=== PATIENT | female | born 1975 | race Caucasian/White ===

== ENCOUNTER 2024-02-08 00:57 | Day surgery (SDC) | payer OTHER, SELFPAY ==
[2024-02-07 19:56] VITALS: BP 140/60
[2024-02-07 20:10] LABS: % Basophils 0.5 % (0-2); % Eosinophils 2.2 % (0-6); % Immature Granulocytes 0.4 % (0-0.5); % Lymphocytes 28.2 % (20.5-51.1); % Monocytes 6.9 % (1.7-9.3); % Neutrophils 61.8 % (42.2-75.2); Absolute Eosinophils 0.2 10^3/uL (0-0.7); Absolute Lymphocytes 2.3 10^3/uL (1.2-3.4); Absolute Monocytes 0.6 10^3/uL (0.1-0.6); Hematocrit 38.4 % (37.0-47.0); Hemoglobin 13.6 g/dL (12.0-16.0); Mean Corp Hgb Conc. 35.4 g/dL (33.0-37.0); Mean Corpuscular Hgb 30.7 pg (27.0-31.0); Mean Corpuscular Volume 86.7 fL (81.0-99.0); Nucleated Red Blood Cells % 0 %; Platelet Count 239 10^3/uL (130-400); Red Blood Cell Count 4.43 10^6/uL (4.20-5.40); Red Cell Dist. Width 12.2 % (11.5-14.5); White Blood Cell Count 8.1 10^3/uL (4.8-10.8)
[2024-02-07 20:21] LABS: HCG, Serum Qualitative Screen Negative
[2024-02-07 20:27] LABS: ALT (SGPT) 38 U/L (0-35); AST (SGOT) 88 U/L (14-36); Albumin 4.6 g/dl (3.5-5.0); Alkaline Phosphatase 73 U/L (38-126); Blood Urea Nitrogen 16 mg/dl (7-17); Calcium 9.9 mg/dl (8.4-10.2); Carbon Dioxide 26 mmol/L (22-30); Chloride 102 mmol/L (98-107); Glucose 115 mg/dl (70-99); Potassium 3.7 mmol/L (3.5-5.1); Sodium 141 mmol/L (135-145); Total Bilirubin 0.9 mg/dl (0.2-1.3); eGFR > 60.00
[2024-02-07 20:28] LABS: Lipase 161 U/L (23-300)
[2024-02-07 20:35] VITALS: BMI 21.5
[2024-02-07 20:40] VITALS: BP 142/74
[2024-02-07 21:00] VITALS: BP 136/69
--- NOTE | 2024-02-07 21:58 | ED.GENMED ---
History of Present Illness
<ANA MARÍA Draper - Last Filed: 02/08/24 05:47>
General
Chief Complaint: Abdominal Pain
Time Seen by Provider: 02/07/24 21:58
History of Present Illness
History of Present Illness:
Patient is a 48 year old female presenting with upper abdominal pain x 4 hours. She claims the pain is epigastric it started around 630pm and was rated a 9/10 on a pain scale. It was described as sharp and radiates to her back. She tried taking Tums
but it did not alleviate symptoms. The pain is constant but fluctuates in severity, it is currently an 8/10. She also admits to associated nausea but denies vomiting. Her last time eating and drinking was at 600pm. She has not had a bowel movement
since before the symptom onset. She denies diarrhea changes in bowel movements dysuria fever chest pain palpitations shortness of breath.
Patient has no allergies and does not take any medication besides the Tums which did not work. She denies any history of constipation or IBS. She denies any recent surgeries. Patient admits to having 1 drink every couple of weeks but denies any
smoking history.
<Rufus Jessica DO - Last Filed: 02/08/24 00:47>
General
Source: patient
Exam Limitations: none
Past History
<ANA MARÍA Draper - Last Filed: 02/08/24 05:47>
Past History
ED Past Medical History: None
Social History
Tobacco: Non-smoker
Personal:
Living: with family
Review of Systems
<ANA MARÍA Draper - Last Filed: 02/08/24 05:47>
Review of Systems
Constitutional: Reports no symptoms
Respiratory: Reports no symptoms
Cardiac: Reports no symptoms
ABD/GI: Reports abdominal pain and nausea
: Reports no symptoms
Phy Exam
<[facility] Filed: 02/08/24 05:47>
General Physical Exam
General Presentation: mild distress
General age: appears stated age
General Habitus: normal
General Mental: alert
General Hydration: appears well hydrated
Cardiovascular Exam
Cardiovascular Exam: regular rate/rhythm, no edema, no gallop, no JVD and no murmur
Pulmonary Exam
Pulmonary Exam: lungs clear, no respiratory distress, no rales, chest non tender, no crackles, no rhonchi, no stridor, no wheezing and no cough
Gastrointestinal Exam
Gastrointestinal Exam: normal bowel sounds, soft, no organomegaly, no pulsatile mass, non distended and tender
Palpation: left upper quadrant: Moderate tenderness, right upper quadrant: Moderate tenderness and right lower quadrant: Mild tenderness
Skin Exam
Skin Exam: normal color, warm/dry, no rash and no petechia
Course
<Crispin De La Garza [facility] Filed: 02/08/24 05:47>
Orders/Labs/Results
Orders:
Orders
02/07/24 20:00
Test Result ONCE
02/07/24 20:04
Complete Blood Count/With Diff Urgent
Comprehensive Metabolic Panel Urgent
HCG, Serum Qualitative Screen Urgent
Comment: Notify provider if positive test present
Lipase Urgent
02/07/24 22:01
Urinalysis Reflex To Culture Urgent
Date Specimen was Collected: 02/07/24
Time Specimen was Collected: 21:58
02/07/24 22:54
CT Abd/pelvis W Iv Cont Urgent
Comment:
Reason For Exam: rlq pain
0.9% Sodium Chloride 1000 ml [Nss] 1,000 ml IV BOLUS
02/07/24 22:55
Mag Hydrox/Al Hydrox/Simeth [Maalox] 30 ml Phenobarb/Hyoscy/Atropine/Scop [] 10 ml PO NOW
Ondansetron Injectable [Zofran] 4 mg IV NOW STA
02/07/24 23:00
Phenobarb/Hyoscy/Atropine/Scop [] 10 ml .ROUTE .STK-MED ONE
02/07/24 23:01
Mag Hydrox/Al Hydrox/Simeth [Maalox] 30 ml .ROUTE .STK-MED ONE
02/07/24 23:08
EKG- Treatment ONCE
02/08/24 00:00
US Abdomen Complete/Upper Urgent
Reason For Exam: RUQ abdominal pain
02/08/24 00:44
Piperacillin/Tazo 4.5 Gram [Zosyn] 4.5 gram in 100 ml IV NOW
02/08/24 00:46
Admit/Transfer Patient As Directed
Co-Sign Provider:
Level of Care: Observation services
Assign to:: Medical/Surgical
Physician / Group: dr saavedra
Diagnosis: acute cholecystitis
PRN Pain Medication Management As Directed
May give lesser potent ordered pain med per pt: Yes
preference::
Protocol:: Medication orders for pain may be administered in a
manner that supports deferring to patient preference
when the pt is:
- Requesting an ordered lesser potent pain medication.
Least to most potent pain medications are defined
as: acetaminophen < NSAID < tramadol < opioids
(morphine, oxycodone, hydromorphone).
- Requesting a lesser dose of the same medication IF
ORDERED.
- Requesting a less intrusive route of administration
if both routes are prescribed by the provider (PO <
IV).
02/08/24 00:47
Code Status As Directed
Resuscitation Status: Full Code
02/08/24 00:58
Acetaminophen [Tylenol] 650 mg PO Q4HPRN PRN
HYDROmorphone [Dilaudid] 0.25 mg IV Q2HPRN PRN
Ketorolac [Toradol] 10 mg IV Q6HPRN PRN
Ondansetron Injectable [Zofran] 4 mg IV Q6HPRN PRN
02/08/24 00:58
Activity As Directed
Activity Level: Out of Bed-Early Mobility
Anti-embolism (CRYS) Hose As Directed
Type: Thigh high
Intake/ Output As Directed
Frequency: Per unit guidelines
Sequential Compression Device [Pneumatic Compression Sleeves] As Directed
Type: Knee high
Vital Signs As Directed
Frequency: Per unit guidelines
DX Deep Vein Thrombosis Video Routine
02/08/24 01:00
Normosol (Mult Electrolytes) [Normosol-R/Plasmalyte-A] 1,000 ml IV 125 mls/hr
02/08/24 Breakfast
NPO
Allow oral meds: Yes
Allow clear liquids: No
NPO with Ice Chips: No
Complete Blood Count/With Diff IN AM
Comprehensive Metabolic Panel IN AM
02/08/24 08:00
Piperacillin/Tazo 3.375 Gram [Zosyn] 3.375 gram in 50 ml IV Q6H
Abnormal Lab Results
02/07/24
20:04
Glucose 115 H mg/dl
(70-99)
AST 88 H U/L
(14-36)
ALT 38 H U/L
(0-35)
02/07/24 20:04
02/07/24 20:04
Vital Signs
Initial and Last Documented VS:
Initial Vital Signs
Temp Pulse Resp BP Pulse Ox
97.9 F 58 20 140/60 99
02/07/24 19:56 02/07/24 19:56 02/07/24 19:56 02/07/24 19:56 02/07/24 19:56
Last Documented Vital Signs
Temp Pulse Resp BP Pulse Ox
98.2 F 62 16 157/85 99
02/08/24 01:25 02/08/24 01:25 02/08/24 01:25 02/08/24 01:25 02/08/24 01:25
<Rufus Jessica, - Last Filed: 02/08/24 00:47>
Orders/Labs/Results
Orders:
Orders
02/07/24 20:00
Test Result ONCE
02/07/24 20:04
Complete Blood Count/With Diff Urgent
Comprehensive Metabolic Panel Urgent
HCG, Serum Qualitative Screen Urgent
Comment: Notify provider if positive test present
Lipase Urgent
02/07/24 22:01
Urinalysis Reflex To Culture Urgent
Date Specimen was Collected: 02/07/24
Time Specimen was Collected: 21:58
02/07/24 22:54
CT Abd/pelvis W Iv Cont Urgent
Comment:
Reason For Exam: rlq pain
0.9% Sodium Chloride 1000 ml [Nss] 1,000 ml IV BOLUS
02/07/24 22:55
Mag Hydrox/Al Hydrox/Simeth [Maalox] 30 ml Phenobarb/Hyoscy/Atropine/Scop [] 10 ml PO NOW
Ondansetron Injectable [Zofran] 4 mg IV NOW STA
02/07/24 23:00
Phenobarb/Hyoscy/Atropine/Scop [] 10 ml .ROUTE .STK-MED ONE
02/07/24 23:01
Mag Hydrox/Al Hydrox/Simeth [Maalox] 30 ml .ROUTE .STK-MED ONE
02/07/24 23:08
EKG- Treatment ONCE
02/08/24 00:00
US Abdomen Complete/Upper Urgent
Reason For Exam: RUQ abdominal pain
02/08/24 00:44
Piperacillin/Tazo 4.5 Gram [Zosyn] 4.5 gram in 100 ml IV NOW
02/08/24 00:46
Admit/Transfer Patient As Directed
Co-Sign Provider:
Level of Care: Observation services
Assign to:: Medical/Surgical
Physician / Group: dr saavedra
Diagnosis: acute cholecystitis
PRN Pain Medication Management As Directed
May give lesser potent ordered pain med per pt: Yes
preference::
Protocol:: Medication orders for pain may be administered in a
manner that supports deferring to patient preference
when the pt is:
- Requesting an ordered lesser potent pain medication.
Least to most potent pain medications are defined
as: acetaminophen < NSAID < tramadol < opioids
(morphine, oxycodone, hydromorphone).
- Requesting a lesser dose of the same medication IF
ORDERED.
- Requesting a less intrusive route of administration
if both routes are prescribed by the provider (PO <
IV).
02/08/24 00:47
Code Status As Directed
Resuscitation Status: Full Code
02/08/24 00:58
Acetaminophen [Tylenol] 650 mg PO Q4HPRN PRN
HYDROmorphone [Dilaudid] 0.25 mg IV Q2HPRN PRN
Ketorolac [Toradol] 10 mg IV Q6HPRN PRN
Ondansetron Injectable [Zofran] 4 mg IV Q6HPRN PRN
02/08/24 00:58
Activity As Directed
Activity Level: Out of Bed-Early Mobility
Anti-embolism (CRYS) Hose As Directed
Type: Thigh high
Intake/ Output As Directed
Frequency: Per unit guidelines
Sequential Compression Device [Pneumatic Compression Sleeves] As Directed
Type: Knee high
Vital Signs As Directed
Frequency: Per unit guidelines
DX Deep Vein Thrombosis Video Routine
02/08/24 01:00
Normosol (Mult Electrolytes) [Normosol-R/Plasmalyte-A] 1,000 ml IV 125 mls/hr
02/08/24 Breakfast
NPO
Allow oral meds: Yes
Allow clear liquids: No
NPO with Ice Chips: No
Complete Blood Count/With Diff IN AM
Comprehensive Metabolic Panel IN AM
02/08/24 08:00
Piperacillin/Tazo 3.375 Gram [Zosyn] 3.375 gram in 50 ml IV Q6H
Abnormal Lab Results
02/07/24
20:04
Glucose 115 H mg/dl
(70-99)
AST 88 H U/L
(14-36)
ALT 38 H U/L
(0-35)
02/07/24 20:04
02/07/24 20:04
Vital Signs
Initial and Last Documented VS:
Initial Vital Signs
Temp Pulse Resp BP Pulse Ox
97.9 F 58 20 140/60 99
02/07/24 19:56 02/07/24 19:56 02/07/24 19:56 02/07/24 19:56 02/07/24 19:56
Last Documented Vital Signs
Temp Pulse Resp BP Pulse Ox
98.2 F 62 16 157/85 99
02/08/24 01:25 02/08/24 01:25 02/08/24 01:25 02/08/24 01:25 02/08/24 01:25
<ANA MARÍA Draper - Last Filed: 02/08/24 05:47>
MDM/Problems Addressed
Differential Diagnosis Includes:
acute pancreatitis, cholecystitis, constipation, appendicitis
MDM/Problems Addressed:
order blood work and urine sample, give meds for pain initially. 1135pm update checked on patient and she claims the cocktail has helped her pain
<ANA MARÍA Draper - Last Filed: 02/08/24 05:47>
*Critical Care Note
Total Time (30-74mins, 75-104mins- exclusive of procedures): Not Applicable
<Rufus Jessica DO - Last Filed: 02/08/24 00:47>
Update Note
Update Note:
I spoke with general surgery, Dr. Saavedra via [employer] text. I provided him with a copy of the vision radiology report. He agreed to have the patient admitted to his service. He requested Zosyn. Repeat labs in the a.m. House nurse practitioner
aware.
ED Attending Note
<ANA MARÍA Draper - Last Filed: 02/08/24 05:47>
-
Portions of this chart may have been created with voice recognition software.� Occasional wrong word or��sound alike� substitutions may have occurred due to the inherent limitations of voice recognition software.
<Rufus Jessica DO - Last Filed: 02/08/24 00:47>
ED Attending Note
Patient seen and examined by attending physician: Yes
I performed the substantive portion of visit, reviewed & personally made and approve the management plan that is documented in note by myself or PORTIA.: Yes
ED Attending Note:
Pleasant 48-year-old female presents with right-sided abdominal pain that began at 6:45 PM. She states that the pain came on approximate 45 minutes after eating dinner. Patient states that initially the pain was in the right upper quadrant. It
has now settled in the midline. She reports nausea without vomiting. She states that the pain is colicky in nature and comes and goes. She reports that riding her to the emergency department caused her extreme discomfort especially in the right
lower quadrant. Denies previous abdominal surgeries. Reports no recent alcohol intake. Patient was seen in conjunction with the PA student. I have reviewed and agree with the history and treatment plan presented. On my independent physical
exam, patient is awake, alert, and oriented x3, minimal acute distress at time of my exam. She states that at its worst the pain is 9 out of 10. Currently she states that she is 3 out of 10. Negative Orozco sign. Negative McBurney's point
tenderness though she does have right lower quadrant tenderness to palpation. She also reports epigastric tenderness to palpation.
Vital signs are stable. Patient not hypoxic
Nursing note reviewed. I agree with nursing documentation up to this point in time.
Home Meds and allergies reviewed.
NUMBER AND COMPLEXITY OF PROBLEMS ADDRESSED AT THE ENCOUNTER
� Chronic conditions affecting care: None
� Acute Exacerbation and/or Progression of Chronic Illness: None this is an acute problem
� Differential Diagnosis includes: Biliary colic, cholecystitis, appendicitis, ulcer
AMOUNT AND/OR COMPLEXITY OF DATA TO BE REVIEWED AND ANALYZED
I performed an independent evaluation of the following and my interpretation is:
EKG:
CT: IMPRESSION:
Gallstones are present in the gallbladder. Gallbladder wall is markedly thickened and edematous. Findings are suspicious for acute cholecystitis in the appropriate clinical setting.
No bile duct dilatation.
Mild bilateral urothelial thickening of the ureters, consider correlation with urinalysis for possibility of UTI. No signs of pyelonephritis. No obstructing ureteral calculi.
Moderate colonic stool. No bowel obstruction. An appendix is not visualized.
Small cyst/follicles in the right ovary/adnexa. Heterogeneity of the uterus, suggestive of underlying fibroids.
X-rays:
Ultrasound:
Laboratory Studies: 8.1 white blood cell count. AST is 88, ALT is 38
Other:
Review of other/old records:
Clinical information was obtained by an independent historian:
Prescriptions/Medications Considered but not given:
Further testing considered but not performed:
RISK OF COMPLICATIONS AND/OR MORBIDITY OR MORTALITY OF PATIENT MANAGEMENT
Social determinants of health affecting care: Good Social Support
Discussion with other providers:
Escalation of care including admission/observation vs risk of discharge considered:
CRITICAL CARE NOTE:
Total Time (exclusive of procedures):
Update:
Discharge Plan
Departure
Patient Disposition: Admit
Date of Disposition: 02/08/24
Time of Disposition: 00:45
Admit to: Med/Surg
Presentation/result/management discussed w/ accepting MD/DO: Dr. Saavedra
Condition: Good
Discharge Problem:
Acute cholecystitis
Interventions
Interventions:
*Risk Screen - Suicide Last Done: 02/07/24 19:56
*General Assessment Last Done: 02/07/24 19:56
*Neglect/Abuse Screening Last Done: 02/07/24 20:35
ED- Fall Risk Assessment Last Done: 02/08/24 03:02
*ED COVID-19 Vaccine History Last Done: 02/07/24 20:35
*Nursing Disposition Last Done: 02/08/24 03:02
SV-Gvszqh-Dbyrhnipir Assessment Last Done: 02/07/24 20:35
Discharge Date and Time
Discharge Date/Time: 02/08/24 01:30
[2024-02-07 22:00] VITALS: BP 90/74
[2024-02-07 22:17] LABS: Urine Albumin Negative (Neg - Trace); Urine Bilirubin Negative (Negative); Urine Character Clear (Clear); Urine Color Yellow; Urine Glucose Negative (Negative); Urine Ketone Negative (Negative); Urine Leukocyte Negative (Negative); Urine Nitrite Negative (Negative); Urine Occult Blood Negative (Negative); Urine Specific Gravity 1.015 (<1.030); Urine Urobilinogen Negative (Neg - 1+)
[2024-02-07 23:00] VITALS: BP 127/77
[2024-02-07] MEDS: ZOFRAN 4 MG IV (23:02)
[2024-02-07] MEDS: NSS 1000 IV (23:03)
[2024-02-07] MEDS: MAALOX 40 PO (23:03)
[2024-02-08] VITALS (10 sets, daily range): BP systolic 110–157; BP diastolic 57–85; BMI 20.3
[2024-02-08] MEDS: NORMOSOL-R/PLASMALYTE-A 1000 IV ×3 (01:50→15:56)
--- NOTE | 2024-02-08 01:50 | PTCARENOTE ---
Pt. arriving to 2S via stretcher and able to walk to room bed with steady gait. Pt. A&Ox3, in NAD, even and unlabored breathing on RA, denies nausea at present, BP elevated but otherwise VSS. Pt. oriented to room and unit policies,
questions/concerns addressed at time of assessment, bed locked and in lowest position, side rails in place, and call light within reach.
--- NOTE | 2024-02-08 03:13 | DOWNTIME ---
There was a [employer] Client [employer] Downtime on 02/08/2024 from 0100 to 02/08/2024 at 0300. Downtime documentation of patient's care, including medication administrations, has been reconciled in the electronic record per guidelines. Refer to the
patient's paper chart under the miscellaneous tab to see printed paper medication records and downtime forms.
--- NOTE | 2024-02-08 03:19 | HPS.HSE ---
Addendum entered and electronically signed by Khoi Aguero MD 02/08/24 09:19:
I saw and examined the patient.
The [employer] Project Manager's note was reviewed and I agree with the note.
Comment: Pain free this am. Likely passed stones given AST/ALT elevation and multiple small stones on imaging. Offered OR today vs DC and elective CCY, she prefers to get ti done today. All risks,m benefits, co,pications and alternatives were
discussed in detail including but not limited to pain, bleeding, infection, injury to intra-abdominal structures including but not limited to bile ducts, intestine, stomach, liver, conversion to open, need for additional procedures and the pt
verbalized understanding and agreed to proceed. OCTOR for lap jeannie with cholang
Original Note:
Family Physician
-
Family Physician: Kemi Berger
Chief Complaint
-
upper abd pain
History of Present Illness
Patient is a 48 year old female presenting with upper abdominal pain/epigastric starting around 1800. Pain was rated a 9/10 on a pain scale. It was described as sharp and radiates to her back. She tried taking Tums but it did not alleviate symptoms.
The pain is constant but fluctuates in severity, it is currently an 1/10 at time of my eval. She also admits to associated nausea but denies vomiting. Her last time eating and drinking was at 600pm(turkey burger and broccoli). She has not had a
bowel movement since before the symptom onset. She denies diarrhea changes in bowel movements dysuria fever chest pain palpitations shortness of breath.
Patient has no allergies and does not take any medication besides the Tums which did not work. She denies any history of constipation or IBS. She denies any recent surgeries. Patient admits to having 1 drink every couple of weeks but denies any
smoking history.
Ct abd: gallstones present in gallbladder. Gallbladder wall markedly thickened and edematous. Findings suspicious for acute cholecystitis.
Ultrasound abd: multiple gallstones are present in the GB. GB wall mildly thickened up to 4 mm.Sonographic finding equivocal for early/mild acte cholecystis
Medical History
Past Medical History
Past Medical History: Reports None
Past Surgical History: Reports Gynocological, Orthopedic (lumbar discectomy), Urological (bladder sling) and Other (varicose vein ligation)
Social History
Tobacco: Non-smoker
Alcohol: Occasional
Drug: None
Personal:
Living: With Family
Employment: Employed
Family History
Family History: Not pertinent
Allergies / Home Medications
Allergies reflects when Allergies were last updated in [facility].
Home Medications with original date entered in [facility]
Allergy/Medication List:
denies daily med usage
Review of Systems
-
History Source: Patient
A 12 point ROS was completed and negative except as noted: Yes
EENT: Reports No Symptoms
Respiratory: Reports No Symptoms
Cardiac: Reports No Symptoms
Abdomen/GI: Reports Abdominal Pain (epigastric to rUQ)
: Reports No Symptoms
Musculoskeletal: Reports No Symptoms
Skin: Reports No Symptoms
Neurological: Reports No Symptoms
Endocrine: Reports No Symptoms
Physical Exam
Vital Signs
Vital Signs
Temp Pulse Resp BP Pulse Ox
97.9 F 58 20 127/77 97
02/07/24 19:56 02/07/24 19:56 02/07/24 19:56 02/07/24 23:00 02/07/24 23:00
Physical Exam
General: Well Developed, Well Nourished, No Apparent Distress and Comfortable
HEENT: NormoCephalic and Moist mucous membranes
Respiratory: Clear and Non Labored Respirations
Cardiac: S1/S2 and Regular Rhythm
Breast: Deferred by me
GI: Soft and Tender (epigastric/rUQ)
Rectal: Deferred by Provider
Genito-urinary: Deferred by me
Musculoskeletal: No Clubbing and No Cyanosis
Skin: Dry
Hematologic/Lymphatic: No Lymphadenopathy
Psych: Calm
Laboratory Results
-
Laboratory Results
Total Bilirubin 0.9 mg/dl (0.2-1.3) 02/07/24 20:04
AST 88 U/L (14-36) H 02/07/24 20:04
ALT 38 U/L (0-35) H 02/07/24 20:04
Alkaline Phosphatase 73 U/L (38-126) 02/07/24 20:04
Lipase 161 U/L (23-300) 02/07/24 20:04
Data Reviewed
-
CT Scan: Discussed with Physician
Ultrasound: Report Reviewed by me and Discussed with Physician
Impression/Plan
-
IMPRESSION:
acute cholecystitis
PLAN:
Admit to service of Dr Guerrero
Med surg obs
#acute cholecystitis
-npo x meds
-IVF: normosol @125
-pain control: Currently pain controlled after GI coktail given in ED, but can use tylenol, toradol, dilaudid prn
-zosyn q6h
-zofran
-AST/ALT slightly elevated-->repeat in am
dvt proph: scd for now
Full code
--- NOTE | 2024-02-08 04:06 | DOWNTIME ---
There was a [employer] Downtime on 02/08/2024 from 0100 to 02/08/2024 at 0300. Downtime documentation of patient's care, including medication administrations, has been reconciled in the electronic record per guidelines. Refer to the
patient's paper chart under the miscellaneous tab to see printed paper medication records and downtime forms.
[2024-02-08 06:15] LABS: % Basophils 0.3 % (0-2); % Eosinophils 0.7 % (0-6); % Immature Granulocytes 0.3 % (0-0.5); % Lymphocytes 18.8 % (20.5-51.1); % Monocytes 6.4 % (1.7-9.3); % Neutrophils 73.5 % (42.2-75.2); Absolute Eosinophils 0.1 10^3/uL (0-0.7); Absolute Lymphocytes 1.8 10^3/uL (1.2-3.4); Absolute Monocytes 0.6 10^3/uL (0.1-0.6); Absolute Neutrophils 7.2 10^3/uL (1.4-6.5); Hematocrit 38.1 % (37.0-47.0); Hemoglobin 13.2 g/dL (12.0-16.0); Mean Corp Hgb Conc. 34.6 g/dL (33.0-37.0); Mean Corpuscular Hgb 30.8 pg (27.0-31.0); Mean Platelet Volume 10.9 fL (7.4-10.4); Nucleated Red Blood Cells % 0 %; Platelet Count 231 10^3/uL (130-400); Red Blood Cell Count 4.28 10^6/uL (4.20-5.40); Red Cell Dist. Width 12.2 % (11.5-14.5); White Blood Cell Count 9.8 10^3/uL (4.8-10.8)
[2024-02-08 06:37] LABS: ALT (SGPT) 203 U/L (0-35); AST (SGOT) 270 U/L (14-36); Alkaline Phosphatase 81 U/L (38-126); Blood Urea Nitrogen 15 mg/dl (7-17); Calcium 9.5 mg/dl (8.4-10.2); Carbon Dioxide 25 mmol/L (22-30); Chloride 106 mmol/L (98-107); Estimated Creatinine Clearance 79 ml/min; Glucose 85 mg/dl (70-99); Potassium 4.3 mmol/L (3.5-5.1); Sodium 141 mmol/L (135-145); Total Bilirubin 0.9 mg/dl (0.2-1.3); Total Protein 6.3 g/dl (6.3-8.2); eGFR > 60.00
[2024-02-08] MEDS: ZOSYN 50 IV ×2 (08:12→19:48)
--- NOTE | 2024-02-08 14:52 | OR.RPT ---
Operative Report
Operative Report
Primary Surgeon: More
Pre-op Diagnosis: Biliary colic
Post-op Diagnosis: Same
Procedure Performed: Laparoscopic cholecystectomy with cholangiogram
Anesthesia Type: GETA
Specimen / Cultures: Gallbladder
Estimated Blood Loss: 5cc
Complications: None immediate
Operative Findings: Floppy gallbladder, tortuous cystic duct, small pigmented stones spilled and retrieved, cholangiogram with tight SOD but no obvious filling defects
Date of Surgery: 02/08/24
Indications: This 48F developed right upper quadrant/epigastric pain and on workup was found to have cholelithiasis with elevated LFTs and a normal common duct. Laparoscopic cholecystectomy with cholangiogram was elected.
Description of procedure: The patient was placed on the operating table in the supine position. General anesthesia was induced. A time-out was completed verifying correct patient, procedure, site, positioning, and special equipment prior to
beginning this procedure. An orogastric tube was placed. The abdomen was prepped and draped in the usual sterile fashion. A stab incision was made in left upper quadrant and the Veress needle was inserted. Proper position was confirmed by aspiration
and saline meniscus test. The abdomen was insufflated with carbon dioxide to a pressure of 12 mmHg. The patient tolerated insufflation well.
A 5mm optical trocar was then inserted at the umbilicus. The laparoscope was inserted and the abdomen inspected. No injuries from initial trocar placement or Veress needle insertion were noted. Additional trocars were then inserted in the following
locations: a 12-mm trocar in the right epigastrium and two 5-mm trocars along the right costal margin. The abdomen was inspected and no abnormalities were found. The table was placed in the reverse Trendelenburg position with the right side up. The
dome of the gallbladder was grasped with an atraumatic grasper and retracted over the dome of the liver. The infundibulum was also grasped with an atraumatic grasper and retracted toward the right lower quadrant. This maneuver exposed Calot�s
triangle. The peritoneum overlying the gallbladder infundibulum was then incised and the cystic duct and cystic artery identified and circumferentially dissected so that a clear view of the liver was achieved through a window between the cystic duct
an cystic artery. At this time, the only two structures going into the gallbladder were the cystic artery and cystic duct.
A clip was placed on the cystic duct close to the neck of the gallbladder. A miihr was made in the cystic duct and a cholangiogram catheter threaded. A cholangiogram was obtained and showed good flow of bile into the duodenum, an intact biliary tree,
and absence of any filling defects. The sphincter appeared tight but contrast did flow into duodenum and no filling defects with the appearance of stones were idntified.
The cystic duct and cystic artery were then doubly clipped and divided close to the gallbladder. The gallbladder was then dissected from its peritoneal attachments by electrocautery. Hemostasis was assured and the gallbladder and contained stones
were removed using an endoscopic retrieval bag placed through the subxiphoid port. The gallbladder was passed off the table as a specimen. The gallbladder fossa was copiously irrigated with saline and hemostasis was again assured. There was no
evidence of bleeding from the gallbladder fossa or cystic artery or leakage of the bile from the cystic duct stump. The subxiphoid trocar site was closed at the fascial level laparoscopically with 2-0 PDS. Secondary trocars were removed under direct
vision and noted to be hemostatic. The laparoscope was withdrawn and the umbilical trocar removed. The abdomen was allowed to collapse. The skin was closed with subcuticular sutures of 4-0 monocryl and topical skin adhesive. The orogastric tube was
removed.
The patient tolerated the procedure well and was taken to the postanesthesia care unit in stable condition.
--- NOTE | 2024-02-08 15:14 | CM ---
CM attempted bedside meeting for assessment
In OR for lap jeannie
CM will follow for dc planning
[2024-02-08] MEDS: ZOFRAN 4 MG IV ×2 (15:24→16:44)
[2024-02-08] MEDS: DILAUDID 0.25 MG IV ×2 (15:32→15:47)
[2024-02-08] MEDS: ZOSYN IV (15:55)
--- NOTE | 2024-02-08 19:32 | SUR.PHASEI ---
pacu addendum - late note -medicated in pacu for nausea with zofran with relief and then dilaudid for pain with relief. vss, updated and transfered to [address] [place] [address] when room and staff available.
[2024-02-09] MEDS: NORMOSOL-R/PLASMALYTE-A 1000 IV (00:35)
[2024-02-09] MEDS: ZOSYN 50 IV ×2 (02:50→08:58)
[2024-02-09 03:05] VITALS: BP 121/63
--- NOTE | 2024-02-09 06:38 | W.PN.GS2 ---
Addendum entered and electronically signed by Sriram Damico MD 02/09/24 16:41:
Labs notable for slightly down trending bilirubin and LFTs. Cr slightly up. Plan for hydration overnight. Repeat labs in AM. Likely DC tomorrow AM.
Addendum entered and electronically signed by Sriram Damico MD 02/09/24 13:11:
Patient seen and examined.
Major complaints. Pain well-controlled. No nausea or vomiting. Afebrile. Ambulating. Voiding.
Gen: NAD
Abd: soft, minimal tenderness, ND, non-peritoneal
Patient is a 48yo F with acute cholecystitis POD#1 following laparoscopic cholecystectomy with cholangiogram.
Recovering well overall. No major postoperative concerns. Labs notable for downtrending LFTs, but rising bilirubin. Clinically appears well. IOC reviewed and no evidence of any filling defects, however tight sphincter of Oddi. Plan for repeat
labs this afternoon - if bilirubin or LFTs continue to rise would monitor and repeat in the AM, if labs trending down okay for discharge.
Plan:
--LFD
--Pain control: Tylenol, Toradol, Oxycodone
--Zosyn discontinued, no need to abx at this time
--Anti-emetic/pain medicine as needed
--Repeat CMP this afternoon
--DC pending the above
DVT Prophylaxis: Lovenox
Original Note:
Today's Communication / Plan
-
Patient advanced to low fat diet. Antibiotics discontinued.
Assessment / Plan
-
Assessment:
48yo F with Acute Cholecystitis POD#1 following Laparoscopic cholecystectomy with cholangiogram. Procedure went well and gallbladder was successfully extracted. Her gallbladder was found to be floppy with a tortuous cystic duct. Cholangiogram did
not show any obvious filling defects.
Ct abd 02/06: gallstones present in gallbladder. Gallbladder wall markedly thickened and edematous. Findings suspicious for acute cholecystitis.
Cholangiogram: No fluoroscopic evidence for choledocholithiasis or biliary obstruction.
Plan:
AFVSS, no leukocytosis
--Clear liquid diet tolerated well last night, advanced to low fat diet
--LFTs trending down, bilirubin elevated -> repeat CMP at 1pm, okay to be discharged if levels trending down
--Zosyn discontinued, no need to abx at this time
--Anti-emetic/pain medicine as needed
--D/C today with instructions to not do any heavy lifting if LFTs and bilirubin are trending down
DVT Prophylaxis: Lovenox
Subjective Data
-
Date of Service: February 09, 2024
Patient says that she has been feeling well and that she is surprised with how little pain she has. She has been passing gas but has not had a bowel movement as of yet.
Objective Data
-
Intake and Output
02/07/24 02/08/24 02/09/24
06:59 06:59 06:59
Intake Total 2105 / 2105
Balance 2105 / 2105
Intake:
Oral fluids 530 / 530
IV fluids (Total) 1475 / 1475
Normosol-R/Plasmalyte-A 1,000 100 / 100
ml @ 125 mls/hr IV .Q8H YOBANI Rx#
:[id number]
IV piggybacks 100 / 100
Other:
Number of approximated MODERATE 2 4
amounts of urine
Number of approximated LARGE 1
amounts of urine
Vital Signs
Temp Pulse Resp BP Pulse Ox
97.5 F 58 20 121/63 99
02/09/24 03:05 02/09/24 03:05 02/09/24 03:05 02/09/24 03:05 02/09/24 03:05
Lab Results
02/08/24 04:49
Calcium 9.5 mg/dl (8.4-10.2) 02/08/24 04:49
Total Bilirubin 0.9 mg/dl (0.2-1.3) 02/08/24 04:49
AST 270 U/L (14-36) H 02/08/24 04:49
ALT 203 U/L (0-35) H 02/08/24 04:49
Alkaline Phosphatase 81 U/L (38-126) 02/08/24 04:49
Total Protein 6.3 g/dl (6.3-8.2) 02/08/24 04:49
Albumin 4.0 g/dl (3.5-5.0) 02/08/24 04:49
Physical Exam
-
GEN: NAD
Abd: soft, non-tender, non distended, incisions have mild ecchymosis but no erythema or drainage
[2024-02-09 06:54] LABS: ALT (SGPT) 140 U/L (0-35); AST (SGOT) 102 U/L (14-36); Albumin 3.8 g/dl (3.5-5.0); Alkaline Phosphatase 63 U/L (38-126); Blood Urea Nitrogen 10 mg/dl (7-17); Calcium 8.4 mg/dl (8.4-10.2); Carbon Dioxide 23 mmol/L (22-30); Chloride 104 mmol/L (98-107); Direct Bilirubin 0.2 mg/dl (0.0-0.4); Estimated Creatinine Clearance 70 ml/min; Glucose 93 mg/dl (70-99); Sodium 140 mmol/L (135-145); Total Bilirubin 1.8 mg/dl (0.2-1.3); Total Protein 6.1 g/dl (6.3-8.2); eGFR > 60.00
[2024-02-09 07:00] VITALS: BP 121/59
[2024-02-09 11:37] VITALS: BP 125/61
[2024-02-09 13:33] LABS: ALT (SGPT) 117 U/L (0-35); AST (SGOT) 91 U/L (14-36); Albumin 3.9 g/dl (3.5-5.0); Alkaline Phosphatase 56 U/L (38-126); Blood Urea Nitrogen 12 mg/dl (7-17); Calcium 8.8 mg/dl (8.4-10.2); Carbon Dioxide 24 mmol/L (22-30); Chloride 103 mmol/L (98-107); Estimated Creatinine Clearance 57 ml/min; Glucose 101 mg/dl (70-99); Potassium 3.5 mmol/L (3.5-5.1); Sodium 140 mmol/L (135-145); Total Bilirubin 1.6 mg/dl (0.2-1.3); Total Protein 6.1 g/dl (6.3-8.2); eGFR > 60.00
--- NOTE | 2024-02-09 14:11 | CM ---
Met with patient at bedside; initial assessment completed
Pharmacy verified: [facility] @ [address] [place] [address]
Patient lives with spouse and 16 yr old daughter in a 2 story home; 1 step to enter; 10-11 steps to 2nd floor; powder room on 1st floor; 2nd floor bathroom has stall shower
PLOF: independent with ambulation, stairs, and ADLs; drives; works part-time
NO DME
will transport home
NO SNF or Home Health history
Plan: discharge to home when medically stable; no needs anticipated
[2024-02-09 15:05] VITALS: BP 134/73
[2024-02-09] MEDS: NSS 1000 IV (16:16)
[2024-02-09 23:04] VITALS: BP 115/67
[2024-02-10] MEDS: NSS 1000 IV (05:45)
[2024-02-10 07:00] VITALS: BP 135/76
[2024-02-10 07:49] LABS: ALT (SGPT) 99 U/L (0-35); AST (SGOT) 67 U/L (14-36); Albumin 3.6 g/dl (3.5-5.0); Alkaline Phosphatase 57 U/L (38-126); Blood Urea Nitrogen 14 mg/dl (7-17); Calcium 8.3 mg/dl (8.4-10.2); Carbon Dioxide 23 mmol/L (22-30); Chloride 107 mmol/L (98-107); Estimated Creatinine Clearance 70 ml/min; Glucose 81 mg/dl (70-99); Potassium 4.1 mmol/L (3.5-5.1); Sodium 142 mmol/L (135-145); eGFR > 60.00
--- NOTE | 2024-02-10 09:07 | W.PN.GS2 ---
Addendum entered and electronically signed by Chava Montes MD 02/10/24 09:51:
I saw and examined the patient independently.
The resident's note was reviewed and I agree with the note, assessment and plan except where noted below.
Comment: This is a 48-year-old female postoperative day 2 from laparoscopic cholecystectomy with cholangiogram. Overall doing well, expected postoperative course.
Tolerating low-fat diet
Bilirubin normalized
Will DC home today.
Original Note:
Today's Communication / Plan
-
Patient's labs are improved from yesterday, will be discharged today.
Assessment / Plan
-
Assessment:
48yo F with Acute Cholecystitis POD#2 following Laparoscopic cholecystectomy with cholangiogram. Procedure went well and gallbladder was successfully extracted. Her gallbladder was found to be floppy with a tortuous cystic duct. Cholangiogram did
not show any obvious filling defects. Patient was able to tolerate low fat diet and her liver enzymes and bilirubin levels are trending down.
Ct abd 02/06: gallstones present in gallbladder. Gallbladder wall markedly thickened and edematous. Findings suspicious for acute cholecystitis.
Cholangiogram: No fluoroscopic evidence for choledocholithiasis or biliary obstruction.
Plan:
AFVSS, no leukocytosis
--Patient tolerating low fat diet well, just complaining of some bloating
--LFTs trending down, bilirubin normalized (1.6 -> 1.0 today)
--Zosyn discontinued yesterday, no plan for further abx
--Anti-emetic/pain medicine as needed
--D/C today with instructions to not do any heavy lifting if LFTs and bilirubin are trending down
--Patient to follow up with surgery team in 2-3 weeks
DVT Prophylaxis: Lovenox
Subjective Data
-
Date of Service: February 10, 2024
Patient has been feeling well and had no adverse events overnight. She has been tolerating the low fat diet well and reports no nausea or vomiting. Her pain is well controlled and she reports only feeling some mild aches around her incision sites.
Her only complaint is feeling a bit bloated and not having a bowel movement recently but she has been passing flatus.
Objective Data
-
Intake and Output
02/09/24 02/10/24 02/11/24
06:59 06:59 06:59
Intake Total 2105 / 2105 2840 / 2840
Balance 2105 / 2105 2840 / 2840
Intake:
Oral fluids 530 / 530 1040 / 1040
IV fluids (Total) 1475 / 1475 1800 / 1800
Normosol-R/Plasmalyte-A 1,000 100 / 100
ml @ 125 mls/hr IV .Q8H [facility] Rx#
:[id number]
IV piggybacks 100 / 100
Other:
Number of approximated MODERATE 4 3
amounts of urine
Number of approximated LARGE 1
amounts of urine
Vital Signs
Temp Pulse Resp BP Pulse Ox
97.9 F 61 16 135/76 99
02/10/24 07:00 02/10/24 07:00 02/10/24 07:00 02/10/24 07:00 02/10/24 07:00
Lab Results
02/08/24 04:49
02/10/24 06:01
Calcium 8.3 mg/dl (8.4-10.2) L 02/10/24 06:01
Total Bilirubin 1.0 mg/dl (0.2-1.3) 02/10/24 06:01
Direct Bilirubin 0.2 mg/dl (0.0-0.4) 02/09/24 04:45
AST 67 U/L (14-36) H 02/10/24 06:01
ALT 99 U/L (0-35) H 02/10/24 06:01
Alkaline Phosphatase 57 U/L (38-126) 02/10/24 06:01
Total Protein 6.0 g/dl (6.3-8.2) L 02/10/24 06:
Albumin 3.6 g/dl (3.5-5.0) 02/10/24 06:01
Physical Exam
-
Gen: NAD
Abd: soft, non-distended, non-tender, incisions non-erythematous and non-draining
--- NOTE | 2024-02-10 09:57 | W.DCSUMMARY ---
Discharge Summary
Discharge Data
Date of Admission: 02/08/24
Date of Discharge: 02/10/24
-
Pending Results: No
Hospital Course
Ms Tracy is a 48 yo female who presented through the ED with upper abdominal and epigastric pain. Imaging with cholelithiasis present. LFT elevations and pain pattern where suggestive of possible passed gallstones. She proceeded to surgery with
laparoscopic cholecystectomy preformed with intraoperative cholangiogram demonstrating no filling defects. Bilirubin normalized prior to discharge with downtrend in transaminases. She had minimal pain post operatively and diet was able to be
advanced and well tolerated.
Discharge Plan
-
Patient Disposition: Home (Routine Discharge)
Discharge Diagnosis/Procedures: Laparoscopic cholecystectomy
Condition: Good
Diet: No restrictions
Additional Diets: Eat a low fat diet if you notice loose stools after surgery
Activity: No strenuous activity
Bathing Restrictions: OK to Shower
Wound Care: Allow skin glue to flake off on its own.
Instructions: Cholecystectomy (DC)
Referrals:
Khoi Aguero MD [Active] - in two to four weeks
Kemi Berger PA-C [Family Provider] -
Additional Discharge Medication Instructions: For pain, take ibuprofen 600mg 4x daily with food for the next few days up to 1 week. In between if you get pain take 1000mg tylenol (max 4x daily). Use ice packs and/or heating pads. When this is not
enough, take oxycodone 1-2 tabs. If you develop diarrhea, go to a nonfat diet, if not, there are no dietary restrictions.
Prescriptions:
New
oxycodone 5 mg tablet
5 - 10 mg PO Q4HPRN PRN (Reason: moderate to severe pain) Qty: 16 0RF
Discharge Orders:
Discharge Patient (As Directed); Ordered 02/10/24
Ordered By: Teresita Herrera
Discharge Date and Time
Print Language: MACEDONIAN
[2024-02-10 10:38] VITALS: BP 128/74
--- NOTE | 2024-02-10 11:12 | CM ---
Plan: Discharge to home today; no needs; has transportation home
== END 2024-02-10 10:53 | disposition home or self-care (01) ==
LOC: PACU 00:57
PROVIDERS: Emergency Medicine; Nurse Practitioner Family; Surgery; ATTENDING PHYSICIAN Surgery; EMERGENCY PHYSICIAN Student in an Organized Health Care Education/Training Program; FAMILY PHYSICIAN Physician Assistant
DX: K80.10 Calculus of gallbladder with chronic cholecystitis without obstruction (principal)
CPT/HCPCS: 47563; 88304; 74177; 74300; 76000; 76700; 80053; 81003; 82248; 83690; 84703; 85025; 93005; 99285; A4300; Q9967